=== PATIENT | female | born 1995 | race Caucasian/White ===

== ENCOUNTER → 2017-05-04 | Outpatient (CLI) | payer OTHER | LOC: MHCPAIN 10:12 | DX: G89.29 Other chronic pain (principal); M50.90 Cervical disc disorder, unspecified, unspecified cervical region; M47.814 Spondylosis without myelopathy or radiculopathy, thoracic region | CPT/HCPCS: G0463 ==

== ENCOUNTER → 2017-06-03 | Outpatient (CLI) | payer OTHER | LOC: MHCPAIN 12:23 | DX: M47.814 Spondylosis without myelopathy or radiculopathy, thoracic region (principal) ==

== ENCOUNTER → 2017-06-07 | Outpatient (CLI) | payer OTHER | LOC: MHCPAIN 14:45 | DX: G89.29 Other chronic pain (principal); M47.814 Spondylosis without myelopathy or radiculopathy, thoracic region | CPT/HCPCS: G0463 ==

== ENCOUNTER → 2017-06-30 | Outpatient (CLI) | payer OTHER | LOC: MHCPAIN 09:51 | DX: M47.814 Spondylosis without myelopathy or radiculopathy, thoracic region (principal); M43.8X4 Other specified deforming dorsopathies, thoracic region ==

== ENCOUNTER → 2017-07-07 | Outpatient (CLI) | payer OTHER | LOC: MHCPAIN 08:08 | DX: G89.29 Other chronic pain (principal); M47.814 Spondylosis without myelopathy or radiculopathy, thoracic region | CPT/HCPCS: G0463 ==

== ENCOUNTER → 2017-07-22 | Outpatient (CLI) | payer OTHER | LOC: MHCPAIN 13:11 | DX: M47.814 Spondylosis without myelopathy or radiculopathy, thoracic region (principal) | CPT/HCPCS: J1100; J2250; J3010 ==

== ENCOUNTER → 2017-08-05 | Outpatient (CLI) | payer OTHER | LOC: MHCPAIN 08:30 | DX: Z53.8 Procedure and treatment not carried out for other reasons (principal) ==

== ENCOUNTER → 2017-09-09 | Outpatient (CLI) | payer OTHER | LOC: MHCPAIN 10:26 | DX: M47.814 Spondylosis without myelopathy or radiculopathy, thoracic region (principal) | CPT/HCPCS: J1100; J2250; J3010 ==

== ENCOUNTER → 2017-11-03 | Outpatient (CLI) | payer OTHER | LOC: MHCPAIN 14:12 | DX: G89.29 Other chronic pain (principal); M47.814 Spondylosis without myelopathy or radiculopathy, thoracic region | CPT/HCPCS: G0463 ==

== ENCOUNTER → 2018-02-28 | Outpatient (CLI) | payer OTHER | LOC: MHCPAIN 09:29 | DX: G89.29 Other chronic pain (principal); M47.814 Spondylosis without myelopathy or radiculopathy, thoracic region | CPT/HCPCS: G0463 ==

== ENCOUNTER → 2018-05-25 | Outpatient (CLI) | payer OTHER | LOC: MHCPAIN 13:38 | DX: G89.29 Other chronic pain (principal); M47.814 Spondylosis without myelopathy or radiculopathy, thoracic region; M53.3 Sacrococcygeal disorders, not elsewhere classified | CPT/HCPCS: G0463 ==

== ENCOUNTER → 2018-06-23 | Outpatient (CLI) | payer OTHER | LOC: MHCPAIN 11:59 | DX: G89.29 Other chronic pain (principal); M53.3 Sacrococcygeal disorders, not elsewhere classified; M47.814 Spondylosis without myelopathy or radiculopathy, thoracic region | CPT/HCPCS: G0260; G0463; J1040; Q9967 ==

== ENCOUNTER → 2018-09-21 | Outpatient (CLI) | payer OTHER | LOC: MHCPAIN 15:42 | DX: G89.29 Other chronic pain (principal); M53.3 Sacrococcygeal disorders, not elsewhere classified; M47.814 Spondylosis without myelopathy or radiculopathy, thoracic region | CPT/HCPCS: G0463 ==

== ENCOUNTER → 2019-01-17 | Outpatient (CLI) | payer OTHER ==
[~2019-01-17] MED LIST: NORCO 325 MG-51 TAB PO; ZOFRAN ODT4 MG PO
== END ==
LOC: MHCPAIN 15:42
DX: G89.29 Other chronic pain (principal); M53.3 Sacrococcygeal disorders, not elsewhere classified; M47.814 Spondylosis without myelopathy or radiculopathy, thoracic region
CPT/HCPCS: G0463

== ENCOUNTER 2019-01-20 17:06 | Emergency (ER) | payer OTHER ==
[~2019-01-20] VITALS: Ht 172.7 cm; Wt 81.8 kg
[2019-01-20 17:10] VITALS: TEMP 96.9
[2019-01-20 17:51] LABS: COLLECTION METHOD CLEAN CATCH
[2019-01-20 17:56] LABS: BASO % 0.5 % (0.0-2.0); EOS # 0.1 (0.0-0.7); EOS % 1.3 % (0-4.0); GRAN # 3.2 (1.4-6.5); GRAN % 57.7 % (42.2-75.2); HEMATOCRIT 40.4 % (37.0-47.0); HEMOGLOBIN 13.6 g/dl (12.5-16.0); LYMPH # 1.7 (1.2-3.4); LYMPH % 30.3 % (20.0-51.0); MEAN CELL VOLUME 91 fl (80.0-100.0); MEAN CORPUSCULAR HEMOGLOBIN 31 pg (27.0-31.0); MEAN CORPUSCULAR HGB CONC 34 g/dl (33.0-37.0); MEAN PLATELET VOLUME 9.8 fl (7.4-10.4); MONO # 0.5 (0.1-0.6); MONO % 9.7 % (1.7-9.3); PLATELET COUNT 268 K/mm3 (130-400); RED BLOOD COUNT 4.43 M/mm3 (4.10-5.30); REDCELL DISTRIBUTION WIDTH-CV 12.6 % (11.5-14.5)
[2019-01-20 17:57] LABS: MUCOUS Present /lpf; PH 7 (5-8); URINE APPEARANCE Hazy; URINE BACTERIA Rare /hpf; URINE BILIRUBIN Negative (NEGATIVE); URINE BLOOD 1+ (NEGATIVE); URINE COLOR Yellow; URINE GLUCOSE Negative (NEGATIVE); URINE KETONE Negative (NEGATIVE); URINE LEUKOCYTE ESTERASE Negative (NEGATIVE); URINE NITRATE Negative (NEGATIVE); URINE PROTEIN(semi-quant) Negative (NEGATIVE); URINE UROBILINOGEN Negative (NEGATIVE)
[2019-01-20 18:07] LABS: CALCIUM 9.1 mg/dL (8.4-10.2); CREATININE, serum 0.86 (0.52-1.25); POTASSIUM 3.4 mmol/L (3.4-5.0)
[2019-01-20] MEDS ORDERED: ZOFRAN ODT4 MG PO (20:11)
[2019-01-20] MEDS ORDERED: NORCO 325 MG-51 TAB PO (20:11)
[2019-01-20 20:25] VITALS: BP 112/51; PULSE 82
[2019-01-24] MEDS ORDERED: PRILOSEC 20MG20 MG PO (08:24)
[2019-01-24] MEDS ORDERED: PLAQUENIL 200M200 MG PO (08:24)
[2019-01-24] MEDS ORDERED: DESYREL 50MG50 MG PO (08:25)
[2019-01-24] MEDS ORDERED: ZOLOFT 100MG100 MG PO (08:25)
[2019-01-24] MEDS ORDERED: TOPAMAX50 MG PO (08:27)
[2019-01-24] MEDS ORDERED: CELEBREX 200MG200 MG PO (08:28)
[2019-01-24] MEDS ORDERED: ULTRAM 50MG TAB50 MG PO (08:28)
[2019-01-24] MEDS ORDERED: ZOFRAN ODT4 MG PO (08:29)
== END 2019-01-20 20:28 | disposition home or self-care (01) ==
LOC: COL.ER 17:06
PROVIDERS: Physician Assistant
DX: G43.909 Migraine, unspecified, not intractable, without status migrainosus (principal); B96.5 Pseudomonas (aeruginosa) (mallei) (pseudomallei) as the cause of diseases classified elsewhere; F32.9 Major depressive disorder, single episode, unspecified; F43.10 Post-traumatic stress disorder, unspecified; F41.9 Anxiety disorder, unspecified
CPT/HCPCS: J1200; J1885; J2270; J2405; J2550; J7030

== ENCOUNTER 2019-01-27 12:42 | Outpatient (CLI) | payer OTHER ==
[~2019-01-27] VITALS: Ht 172.7 cm; Wt 81.1 kg
[2019-01-27] VITALS (8 sets, daily range): BP systolic 107–128; BP diastolic 63–80; PULSE 72–95
[~2019-01-27 12:42] MED LIST changes: +CELEBREX 200MG200 MG PO; +DESYREL 50MG50 MG PO; +PLAQUENIL 200M200 MG PO; +PRILOSEC 20MG20 MG PO; +TOPAMAX50 MG PO; +ULTRAM 50MG TAB50 MG PO; +ZOLOFT 100MG100 MG PO
--- NOTE | 2019-01-27 14:20 | NUR ---
Pt to EU 9 per cart s/p LP. Pt resting well. Pt's H/A is at baseline which she rates at 7/10.
[2019-01-27 14:42] LABS: GLUCOSE,CSF 54 mg/dL (40-70); TOTAL PROTEIN,CSF 40 mg/dL (15-45)
[2019-01-27 15:19] LABS: CSF APPEARANCE CLEAR; CSF COLOR COLORLESS; CSF RBC 44 /mm3 (0-0)
[2019-01-27 15:20] LABS: CSF MONONUCLEAR 66 % (70-100); CSF POLYMORPHONUCLEAR 34 % (0-6)
--- NOTE | 2019-01-27 15:40 | NUR ---
Pt has ambulated, voided and vanda PO intake s n/v.
--- NOTE | 2019-01-27 15:50 | NUR ---
Pt discharged per w/c by nurse with friend Karoline.
== END 2019-01-27 16:13 | disposition home or self-care (01) ==
LOC: COL.RAD 12:42
PROVIDERS: Psychiatry & Neurology Neurology
DX: G93.2 Benign intracranial hypertension (principal); G43.009 Migraine without aura, not intractable, without status migrainosus

== ENCOUNTER 2020-02-02 12:18 | Outpatient (CLI) | payer OTHER ==
[~2020-02-02] VITALS: Ht 172.7 cm; Wt 94.1 kg
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
[2020-02-02 12:33] VITALS: BP 123/73; PULSE 101; TEMP 98.3
[2020-02-02] MEDS ORDERED: PRENATAL (12:39)
[2020-02-02 13:00] VITALS: BP 123/73; PULSE 101; TEMP 98.3
--- NOTE | 2020-02-02 13:22 | NUR ---
PATIENT STATES SHE DOES NOT FEEL CONTRACTIONS
[2020-02-02 13:35] VITALS: BP 115/55; PULSE 105
== END 2020-02-02 13:40 | disposition home or self-care (01) ==
LOC: LDRO 12:18 → LDR 12:45 → LDRO 13:40
DX: O36.8130 Decreased fetal movements, third trimester, not applicable or unspecified (principal); Z3A.35 35 weeks gestation of pregnancy
CPT/HCPCS: OP

== ENCOUNTER → 2020-02-26 | Outpatient (CLI) | payer OTHER ==
[~2020-02-26] MED LIST changes: +MOTRIN 600600 MG/TAB PO; +PERCOCET 325 MG1 TA2 PO; +PRENATAL
== END | disposition still patient (30) ==
LOC: ZCOL.LAB 02:02
DX: Z20.828 Contact with and (suspected) exposure to other viral communicable diseases (principal)

== ENCOUNTER 2020-02-29 07:08 | Inpatient (IN) | payer OTHER ==
[2020-02-29] VITALS (42 sets, daily range): BP systolic 100–149; BP diastolic 55–81; PULSE 80–173; TEMP 97.6–99.5
[~2020-02-29] VITALS: Ht 172.7 cm; Wt 98.2 kg
[~2020-02-29 07:08] MED LIST changes: -MOTRIN 600600 MG/TAB PO; -PERCOCET 325 MG1 TA2 PO
--- NOTE | 2020-02-29 07:10 | NUR ---
PATIENT HERE FOR INDUCTION TO LR 4, SPOUSE PRESENT. PATIENT CHANGED INTO GOWN, ON EFM, VITALS OBTAINED, ASSESEMENT COMPLETE, IV STARTED, CONSENTS SIGNED. PATIENT DENIES BLEEDING, LEAKING OF FLUID OR CONTRACTIONS
[2020-02-29 07:53] LABS: HEMOGLOBIN 12.5 g/dl (12.5-16.0); MEAN CELL VOLUME 95 fl (80.0-100.0); MEAN CORPUSCULAR HEMOGLOBIN 32 pg (27.0-31.0); MEAN CORPUSCULAR HGB CONC 34 g/dl (33.0-37.0); MEAN PLATELET VOLUME 9.8 fl (7.4-10.4); PLATELET COUNT 330 K/mm3 (130-400); RED BLOOD COUNT 3.87 M/mm3 (4.10-5.30); REDCELL DISTRIBUTION WIDTH-CV 13.2 % (11.5-14.5)
[2020-02-29 07:58] LABS: HEMATOCRIT 36.6 % (37.0-47.0)
--- NOTE | 2020-02-29 08:01 | NUR ---
patient up to bathroom at this time
--- NOTE | 2020-02-29 08:25 | NUR ---
patient up to the bathroom
--- NOTE | 2020-02-29 08:53 | NUR ---
PATIENT UP TO BATHROOM
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
--- NOTE | 2020-02-29 09:23 | NUR ---
PATIENT AMBULATED TO BATHROOM AT THIS TIME
--- NOTE | 2020-02-29 10:02 | NUR ---
PATIENT UP TO BATHROOM
[2020-02-29 10:24] LABS: BAND 1 % (0-10); EOSINOPHIL 3 % (0-4); LYMPHOCYTE 15 % (20.0-51.0); NEUTROPHILS 71 % (42.0-75.2)
[2020-02-29 10:26] LABS: PLATELET ESTIMATE NORMAL (NORMAL)
--- NOTE | 2020-02-29 10:30 | NUR ---
[id number] INTERMITTENT TRACING DUE TO EPIDURAL PLACEMENT AND BATHROOM AMBULATION
--- NOTE | 2020-02-29 10:45 | NUR ---
PATIENT WL TO WR TO LL AT THIS TIME
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
--- NOTE | 2020-02-29 13:21 | NUR ---
patient wl to wr to ll to semi fowlers over the last 5-10 mins. oxygen applied
--- NOTE | 2020-02-29 13:30 | NUR ---
PATIENT SUPINE TO WL THEN PB WR
--- NOTE | 2020-02-29 15:25 | NUR ---
BY DR STOVER AT THIS TIME. VIABLE TO MOTHERS CHEST. CORD CUT BY FOChar, IN CARE OF ASHOK LATHAM RN AND ANN Leon RN. PLACENTA SPON DELIVERED AT 1529. FUNDAL MASSAGE PROVIDED. OXYTOCIN 333 MLS/ HR EPIS CUT BY DR STOVER PRIOR TO DELIVERY, 2ND DEGREE REPAIRED BY DR STOVER.LIDOCAINE USED BY DR STOVER. STRAIGHT CATH USED BY DR STOVER. ICE PACK TO PERINEUM. RECOVERY STARTED AT 1545.
[2020-03-01 00:02] VITALS: BP 113/51; PULSE 88; TEMP 98.4
[2020-03-01 04:00] VITALS: BP 99/54; PULSE 86; TEMP 98.1
[2020-03-01 07:15] VITALS: BP 109/53; PULSE 102; TEMP 97.9
[2020-03-01] MEDS ORDERED: PERCOCET 325 MG1 TA2 PO (08:48)
[2020-03-01] MEDS ORDERED: MOTRIN 600600 MG/TAB PO (08:48)
--- NOTE | 2020-03-01 09:49 | NUR ---
Initial visit; Parents thanked [employer] for offering congratulations and God's blessings for the of their daughter. [employer] thanked family for choosing [facility].
[2020-03-01 16:15] VITALS: BP 98/54; PULSE 98; TEMP 98.4
[2020-03-01 20:35] VITALS: BP 130/61; PULSE 121; TEMP 97.9
[2020-03-02 07:10] VITALS: BP 110/71; PULSE 98; TEMP 97.6
== END 2020-03-02 13:35 | disposition home or self-care (01) | DRG 807 ==
LOC: OB 07:08 → LDR 07:08 → OB 09:37
PROVIDERS: ADMIT Obstetrics & Gynecology
PROC: 10E0XZZ Delivery of Products of Conception, External Approach (ICD-10-PCS; principal; 2020-02-29)
PROC: 0KQM0ZZ Repair Perineum Muscle, Open Approach (ICD-10-PCS; 2020-02-29)
PROC: 10907ZC Drainage of Amniotic Fluid, Therapeutic from Products of Conception, Via Natural or Artificial Opening (ICD-10-PCS; 2020-02-29)
PROC: 10E0XZZ Delivery of Products of Conception, External Approach (ICD-10-PCS; 2020-02-29)
DX: O99.344 Other mental disorders complicating childbirth (principal); Z37.0 Single live birth; F41.8 Other specified anxiety disorders; D89.89 Other specified disorders involving the immune mechanism, not elsewhere classified; O75.89 Other specified complications of labor and delivery; F32.9 Major depressive disorder, single episode, unspecified; O70.1 Second degree perineal laceration during delivery; F43.10 Post-traumatic stress disorder, unspecified; Z3A.39 39 weeks gestation of pregnancy
CPT/HCPCS: J2590; J7120

== ENCOUNTER → 2023-01-18 | Outpatient (CLI) | payer OTHER ==
[~2023-01-18] MED LIST changes: +MOTRIN 600600 MG/TAB PO; +PERCOCET 325 MG1 TA2 PO
== END ==
LOC: CANSCHCLI → COL.RAD 07:30
DX: G43.709 Chronic migraine without aura, not intractable, without status migrainosus (principal); G93.2 Benign intracranial hypertension; R53.82 Chronic fatigue, unspecified; R41.89 Other symptoms and signs involving cognitive functions and awareness
CPT/HCPCS: A9575